=== PATIENT | female | born 1965 | race American Indian/Alaskan Native ===

== ENCOUNTER 2019-08-07 12:06 | Emergency (ER) | payer OTHER ==
--- NOTE | 2019-08-07 12:20 | Emergency Department Report ---
<REBECCA STARKS - Last Filed: 08/07/19 12:15> ED General Adult HPI - General Chief complaint: Upper Respiratory Infection Stated complaint: CHEST COLD/FLU LIKE SYM Source: patient Mode of arrival: Ambulatory Limitations: No Limitations - History of Present Illness Initial comments: 54yo female states that she has severe congestion and body aches that has been ongoing for 2 weeks. She states that she has tried OTC medications with no relief. - Related Data Previous Rx's Medication Instructions Recorded Last Taken Type Azithromycin [Zithromax Z-KEY] 250 mg PO QDAY #6 tablet 12/22/15 Unknown Rx ALBUTEROL Inhaler (OR & NICU) 2 puff IH QID PRN #1 inhalation 08/07/19 Unknown Rx [ProAir HFA Inhaler] guaiFENesin/CODEINE [Robitussin AC] 5 ml PO Q6H PRN #100 ml 08/07/19 Unknown Rx Allergies Allergy/AdvReac Type Severity Reaction Status Date / Time No Known Allergies Allergy Verified 08/07/19 12:10 ED Past Medical Hx - Past Medical History Previous Medical History?: No - Surgical History Past Surgical History?: Yes Additional Surgical History: partial hysterectomy, 1 c section - Social History Smoking Status: Never Smoker Substance Use Type: Alcohol - Medications Home Medications: Home Medications Medication Instructions Recorded Confirmed Last Taken Type Azithromycin [Zithromax Z-KEY] 250 mg PO QDAY #6 tablet 12/22/15 Unknown Rx ALBUTEROL Inhaler (OR & NICU) 2 puff IH QID PRN #1 inhalation 08/07/19 Unknown Rx [ProAir HFA Inhaler] guaiFENesin/CODEINE [Robitussin AC] 5 ml PO Q6H PRN #100 ml 08/07/19 Unknown Rx ED Physical Exam - General Limitations: No Limitations ED Disposition Clinical Impression: Upper respiratory infection, Bronchitis Disposition: DC-01 TO HOME OR SELFCARE Condition: Stable Instructions: Acute Bronchitis (ED), Upper Respiratory Infection (ED) Additional Instructions: Please follow-up with a primary care physician in the next few days. Return to the emergency Department with any worsening of your symptoms or any acute distre ss. You have been prescribed a medication that is sedating and therefore should not be taken prior to driving, working, and responsible for children and in no way should be mixed with alcohol of any quantity. Prescriptions: ALBUTEROL Inhaler (OR & NICU) [ProAir HFA Inhaler] 2 puff IH QID PRN #1 inhalation PRN Reason: Shortness Of Breath guaiFENesin/CODEINE [Robitussin AC] 5 ml PO Q6H PRN #100 ml PRN Reason: Cough Referrals: [facility] [Outside] - 3-5 Days [facility] [Outside] - 3-5 Days [facility] [Outside] - 3-5 Days <HOME ZAMORA - Last Filed: 08/07/19 14:48> ED General Adult HPI - History of Present Illness Initial comments: 54-year-old female presents to the emergency department with a two-week history of productive cough, chest congestion, shortness of breath and fatigue. She says that the last time she had symptoms like this was when she had walking pneumonia and thinks maybe she has it again. She has not a tobacco smoker. She does not have a primary care physician. She says that she has taken multiple different [id number] medications without any relief. No recent travel or sick contacts at home. ED Review of Systems ROS: Stated complaint: CHEST COLD/FLU LIKE SYM Other details as noted in HPI Comment: All other systems reviewed and negative Constitutional: denies: chills, fever Eyes: denies: eye pain, vision change ENT: congestion. denies: ear pain, throat pain Respiratory: cough, shortness of breath Cardiovascular: denies: chest pain, palpitations Neurological: denies: headache, weakness ED Course Vital Signs 08/07/19 08/07/19 12:14 14:05 Temperature 98.6 F Pulse Rate 64 Pulse Rate [ 66 Anterior Bilateral Throughout] Pulse Rate [ 64 Posterior Bilateral Throughout] Respiratory 20 Rate Respiratory 19 Rate [Anterior Bilateral Throughout] Respiratory 18 Rate [Posterior Bilateral Throughout] Blood Pressure 112/82 [Right] O2 Sat by Pulse 100 Oximetry ED Medical Decision Making - Radiology Data Radiology results: image reviewed interpreted by me: Chest x-ray does not show any acute process. There are no pleural effusions, obvious pneumonia and there is no pneumothorax. Critical care attestation.: If time is entered above; I have spent that time in minutes in the direct care of this critically ill patient, excluding procedure time. ED Disposition Is pt being admited?: No Time of Disposition: 14:48
--- NOTE | 2019-08-07 12:44 | XRay Report ---
CHEST 2 VIEWS INDICATION: Shortness of breath, cough, congestion for 2 weeks. COMPARISON: None FINDINGS: Support devices: None. Heart: Within normal limits. Lungs/pleura: No acute air space or interstitial disease. No pneumothorax. Additional findings: None. IMPRESSION: No acute findings. Signer Name: Amaury Martines Jr, MD Signed: 08/07/2019 12:40 PM Workstation Name: [id number]
[2019-08-07] MEDS ORDERED: DECADRON PO ONE (13:22)
[2019-08-07] MEDS ORDERED: DUONEB *Not for PRN Use IH ONE (13:22)
[2019-08-07 14:54] VITALS: BP 115/84
== END 2019-08-07 14:53 | disposition home or self-care (01) ==
LOC: ED 12:06
DX: J06.9 Acute upper respiratory infection, unspecified (principal); J40 Bronchitis, not specified as acute or chronic; Z90.711 Acquired absence of uterus with remaining cervical stump; Z79.899 Other long term (current) drug therapy
CPT/HCPCS: 71046; 94640; 99283; J8540; 94644